=== PATIENT | male | born 1965 | race Caucasian/White ===

== ENCOUNTER 2017-09-19 21:05 | Emergency (ER) | payer BC ==
[2017-09-19 21:12] VITALS: BMI 29.0
[2017-09-19] MEDS ORDERED: ASPIRIN 81 MG CHEWTAB PO ONE (21:41)
[2017-09-19] MEDS ORDERED: ASPIRIN 81 MG CHEWTAB ONE (21:41)
[2017-09-19] MEDS ORDERED: NITROSTAT SL PRN (21:48)
[2017-09-19] MEDS ORDERED: NITROSTAT SL ONE (21:49)
--- NOTE | 2017-09-19 21:52 | DR.CP ---
HPI - Time Seen Time seen: 21:45 - PCP Primary Care Physician: Trey Jimenez - HPI Comment HPI Comment: PAIN WORSE TODAY. - Complaint Chief Complaint Doctor Comments: INTERMITTENT CHEST PAIN TIMES ONE WEEK. NO ASSOCIATED SYMTOMS. Chief Complaint:: Has been having chest pain for the past week which has became worse today - Reviewed Nurses Notes Review: Yes - Source History Provided: Patient - Mode of Arrival Mode of Arrival: Ambulatory - Timing Onset of Chief Complaint: 09/12/17 Came on: Suddenly Pain: Present Now - Duration Duration: Intermittent Duration: Days - Location Location of Chest Pain: Left, Chest Chest Pain Radiation Location: None - Context Onset: At rest Cardiac Risk Factors: None PE Risk Factors: None History of: None Prehospital Care: None - Quality Quality: Pressure like, Heavy - Severity Severity: Moderate - Modifying Factors Worsens: Nothing Impoves: Nothing - Associated Signs and Symptoms Associated Signs and Symptoms: None PMH - PMH Past Medical History: Yes Past Medical History: Dyslipidemia, Hypertension Past Surgical History: Yes Surgical History: Ortho Surgery, Tonsillectomy - Family History History of Family Medical Conditions: Yes Family Medical History: Cancer, CT, Hypertension - Social History Does patient currently use any type of tobacco product: No Have you used tobacco products in the last 12 months: No Type of Tobacco Use: None Does any household member use tobacco: No Alcohol Use: DAILY Do you use any recreational Drugs:: No Lives With: Family Lives Where: Home - infectious screening In the last 2 months have you had wt loss of >10#?: NO Have you had fever, night sweats or hemotysis?: No Have you traveled outside the country in the last 6 months?: No Isolation: Standard ROS - Review of Systems Constitutional: No Symptoms Reported Eyes: No Symptoms Reported ENTM: No Symptoms Reported Respiratoy: No Symptoms Reported Cardiovascular: Chest Pain Gastrointestinal/Abdominal: No Symptoms Reported Genitourinary: No Symptoms Reported Neurological: No Symptoms Reported Musculoskeletal: No Symptoms Reported Integumentary: No Symptoms Reported Hematologic/Lymphatic: No Symptoms Reported Endocrine: No Symptoms Reported Psychiatric: No Symptoms Reported All Other Systems: Reviewed and Negative PE - Vitals Vitals: Temperature 98.0 F Pulse Rate [Left Brachial] 68 Pulse Rate 72 Respiratory Rate 18 Blood Pressure [Right Arm] 131/69 Blood Pressure 120/68 O2 Sat by Pulse Oximetry 99 - General Limitations: No Limitations General Appearance: Alert - Head Head Exam: Normal Inspection - Eyes Eye exam: Normal Appearance - ENT ENT Exam: Normal External Ear Exam - Chest Chest Inspection: Symmetric Chest Wall Rise - Respiratory Respiratory Exam: Normal Lung Sounds Bilat Respiratory Exam: Bilateral Clear to Auscultation - Cardiovascular Cardiovascular Exam: Regular Rate, Normal Rhythm, Normal Heart Sounds Pulse: Normal, Radial, Femoral Edema: Normal - Abdominal Exam Abdominal Exam: Normal Bowel Sounds, Soft. negative: Tenderness - Extremities Extremities Exam: Normal Inspection - Back Back Exam: Normal Inspection - Neurologic Neurological Exam: Alert, Oriented X3 - Psychiatric Psychiatric Exam: Normal Affect, Normal Mood - Skin Skin Exam: Normal Color [facility] - Additional Information Additional Information Obtained From: Family - Differential Diagnosis Differential Diagnosis: Angina, Chest Wall Pain, Cholelithasis, Costochondritis , Esophageal Reflux/Spasm, Gastritis, Myocardial Infarction, Pericarditis, Pleuritis, Pancreatitis, Pneumonia, Pneumothorax, Pulmonary Embolus Course - Treatment Treatment: SEE ORDERS. PO ASA AND NTG IN ED. REPEAT CARDIAC ENZYMES WERE WITHOUT ACUE FINDINGS. D/C HOME IN STABLE CONDITION. - Education/Counseling Education/Counseling: Patient, Family, Education Educated On: Treatment, Diagnosis, Needs for Follow Up ROR - Labs Reviewed Laboratory Results Reviewed?: Yes Result Diagrams: 09/19/17 21:53 09/19/17 21:53 Laboratory: WBC 5.4 X10^3/uL (3.6-10.0) 09/19/17 21:53 RBC 4.68 X10^6/uL (4.7-6.0) L 09/19/17 21:53 Hgb 16.4 g/dL (13.5-18.0) 09/19/17 21:53 Hct 46.0 % (42.0-54.0) 09/19/17 21:53 MCV 98.3 fL (80.0-100.0) 09/19/17 21:53 MCH 35.1 pg (27.0-34.0) H 09/19/17 21:53 MCHC 35.7 g/dL (33.0-35.0) H 09/19/17 21:53 RDW 12.6 % (11.6-16.5) 09/19/17 21:53 Plt Count 215 X10^3/uL (150.0-450.0) 05/20/18 21:53 MPV 7.1 fL (7.4-11.0) L 09/19/17 21:53 Neut % (Auto) 56.1 % (42.0-75.0) 09/19/17 21:53 Lymph % (Auto) 22.3 % (21.0-51.0) 09/19/17 21:53 [place] % (Auto) 12.0 % (0.0-13.0) 09/19/17 21:53 Eos % (Auto) 8.3 % (0.9-2.9) H 09/19/17 21:53 Baso % (Auto) 1.3 % (0.2-1.0) H 09/19/17 21:53 Neut # (Auto) 3.1 x10^3/uL (2.2-4.8) 09/19/17 21:53 Lymph # (Auto) 1.2 X10^3/uL (1.3-2.9) L 09/19/17 21:53 [place] # (Auto) 0.7 x10^3/uL (0.3-0.8) 09/19/17 21:53 Eos # (Auto) 0.5 x10^3/uL (0.0-0.2) H 09/19/17 21:53 Baso # (Auto) 0.1 X10^3/uL (0.0-0.1) 09/19/17 21:53 Absolute Nucleated RBC 0.1 /100WBC 09/19/17 21:53 INR Target Range - 09/19/17 21:53 INR 0.92 (0.8-1.3) 09/19/17 21:53 APTT 24.7 SECONDS (22.9-36.5) 09/19/17 21:53 PTT Comment - 09/19/17 21:53 D-Dimer < 100 ng/mL (0-400) 09/19/17 21:53 Sodium 138 mmol/L (136-145) 09/19/17 21:53 Corrected Sodium TNP 09/19/17 21:53 Potassium 4.5 mmol/L (3.5-5.1) 09/19/17 21:53 Chloride 103 mmol/L (98-107) 09/19/17 21:53 Carbon Dioxide 28.0 mmol/L (21-32) 09/19/17 21:53 BUN 14 mg/dL (7-18) 09/19/17 21:53 Creatinine 1.14 mg/dL (0.70-1.30) 09/19/17 21:53 Est GFR (MDRD) Af Amer > 60 (>60) 09/19/17 21:53 Est GFR (MDRD) Non-Af > 60 (>60) 09/19/17 21:53 Glucose 88 mg/dL (65-99) 09/19/17 21:53 Calcium 9.5 mg/dL (8.5-10.1) 09/19/17 21:53 Corrected Calcium TNP 09/19/17 21:53 Total Bilirubin 0.30 mg/dL (0.2-1.0) 09/19/17 21:53 AST 23 Units/L (15-37) 09/19/17 21:53 ALT 52 Units/L (12-78) 09/19/17 21:53 Alkaline Phosphatase 71 Units/L (46-116) 09/19/17 21:53 Creatine Kinase 213 Units/L (39-308) 09/20/17 01:34 CK-MB (CK-2) 2.3 ng/mL (0-4.0) 09/20/17 01:34 CK/CKMB % Calc 1.1 % (<4) 09/20/17 01:34 Troponin I < 0.02 ng/mL (0-1.5) 09/20/17 01:34 C-Reactive Protein 0.60 mg/L (0-3.0) 09/19/17 21:53 Total Protein 6.8 g/dL (6.4-8.2) 09/19/17 21:53 Albumin 3.9 g/dL (3.4-5.0) 09/19/17 21:53 Globulin 2.9 g/dL (2.5-4.5) 09/19/17 21:53 Albumin/Globulin Ratio 1.3 Ratio (1.1-2.1) 09/19/17 21:53 H. pylori IgG Antibody Negative (NEGATIVE) 09/19/17 21:53 - XRAY XRAY Interpreted by: Radiologist XRAY Findings: REPORT DISCUSS WITH PATIENT. - EKG Rhythm: NSR (EKG NOTED.) - Diagnosis Discharge Problem: Chest pain Qualifiers: Chest pain type: unspecified Qualified Code(s): R07.9 - Chest pain, unspecified - Discharge Plan Disposition: 01 HOME, SELF-CARE Condition: Stable - Follow ups/Referrals Follow ups/Referrals: [facility],None [Primary Care Provider] - 09/20/17 - Instructions Instructions: Chest Pain Observation Additional Instructions: RETURN TO ED IF WORSE.
--- NOTE | 2017-09-19 22:04 | RAD ---
AP chest. Indication: Chest pain Findings: Lungs are clear the heart size is normal. No pleural effusion or pneumothorax. No acute oss eous abnormality. Impression: No acute cardiopulmonary abnormality. Reported By:
[2017-09-19 22:29] LABS: BASOPHILS # (AUTO) 0.1 X10^3/uL (0.0-0.1); BASOPHILS % (AUTO) 1.3 % (0.2-1.0); EOSINOPHILS # (AUTO) 0.5 x10^3/uL (0.0-0.2); EOSINOPHILS % (AUTO) 8.3 % (0.9-2.9); HEMOGLOBIN 16.4 g/dL (13.5-18.0); LYMPHOCYTES # (AUTO) 1.2 X10^3/uL (1.3-2.9); LYMPHOCYTES % (AUTO) 22.3 % (21.0-51.0); MEAN CORPUSCULAR HEMOGLOBIN 35.1 pg (27.0-34.0); MEAN CORPUSCULAR HGB CONC 35.7 g/dL (33.0-35.0); MEAN CORPUSCULAR VOLUME 98.3 fL (80.0-100.0); MEAN PLATELET VOLUME 7.1 fL (7.4-11.0); MONOCYTES # (AUTO) 0.7 x10^3/uL (0.3-0.8); NEUTROPHILS # (AUTO) 3.1 x10^3/uL (2.2-4.8); NEUTROPHILS % (AUTO) 56.1 % (42.0-75.0); PLATELET COUNT 215 X10^3/uL (150.0-450.0); RED BLOOD COUNT 4.68 X10^6/uL (4.7-6.0); RED CELL DISTRIBUTION WIDTH 12.6 % (11.6-16.5); WHITE BLOOD COUNT 5.4 X10^3/uL (3.6-10.0)
[2017-09-19 22:30] LABS: BLOOD UREA NITROGEN 14 mg/dL (7-18); CALCIUM 9.5 mg/dL (8.5-10.1); CHLORIDE 103 mmol/L (98-107); CREATININE 1.14 mg/dL (0.70-1.30); SODIUM 138 mmol/L (136-145); TROPONIN I < 0.02 ng/mL (0-1.5); eGFR BLACK RACES > 60 (>60); eGFR NON BLACK RACES > 60 (>60)
[2017-09-19 22:34] LABS: ALANINE AMINOTRANSFERASE 52 Units/L (12-78); ALBUMIN 3.9 g/dL (3.4-5.0); ALKALINE PHOSPHATASE 71 Units/L (46-116); ASPARTATE AMINO TRANSFERASE 23 Units/L (15-37); CKMB % 1.2 % (<4); CREATINE KINASE 260 Units/L (39-308); TOTAL PROTEIN 6.8 g/dL (6.4-8.2)
[2017-09-20 00:47] VITALS: BP 131/69
[2017-09-20 02:19] LABS: CKMB % 1.1 % (<4); CREATINE KINASE 213 Units/L (39-308); CREATINE KINASE MB 2.3 ng/mL (0-4.0); TROPONIN I < 0.02 ng/mL (0-1.5)
== END 2017-09-20 02:50 | disposition home or self-care (01) ==
LOC: ER 21:05
DX: R07.89 Other chest pain (principal)
CPT/HCPCS: 36415; 71045; 80053; 82550; 82553; 84484; 85025; 85378; 85610; 85730; 86140; 86677; 93005; 93010; 96365; 99283; 99285; A4222